=== PATIENT | female | born 1985 | race Caucasian/White ===

== ENCOUNTER 2019-07-13 14:33 | Inpatient (IN) | payer BC, MEDICAID ==
[~2019-07-13] VITALS: Ht 162.6 cm; Wt 76.7 kg
[2019-07-13 14:40] VITALS: BP_SYST 114
[2019-07-13] MEDS ORDERED: NACL 0.9% 1,000 ML IV ONE (15:14)
[2019-07-13] MEDS ORDERED: ONDANSETRON HCL 4 MG/2 ML VIAL IVP ONE (15:15)
[2019-07-13] MEDS ORDERED: MORPHINE 2 MG/ML INJ. SYRINGE IVP ONE (15:15)
[2019-07-13 15:57] LABS: BASOPHILS # (AUTO) 0.1 K/uL (0.0-0.2); EOSINOPHILS # (AUTO) 0.1 K/uL (0.0-0.4); EOSINOPHILS % (AUTO) 1.2 % (0.0-4.0); HEMATOCRIT 42.8 % (36-48); HEMOGLOBIN 14.7 g/dL (12.0-16.0); LYMPHOCYTES # (AUTO) 1.9 K/uL (1.0-5.5); LYMPHOCYTES % (AUTO) 22.8 % (20.5-51.5); MEAN CORPUSCULAR HEMOGLOBIN 30 pg (27-31); MEAN CORPUSCULAR HGB CONC 34 % (32-36); MEAN CORPUSCULAR VOLUME 89 fL (79.0-98.0); MONOCYTES # (AUTO) 0.6 K/uL (0.0-1.0); MONOCYTES % (AUTO) 7.7 % (1.7-9.3); NEUTROPHILS # (AUTO) 5.7 K/uL (1.8-7.7); NEUTROPHILS % (AUTO) 67.3 % (40.0-70.0); PLATELET COUNT (AUTO) 271 K/uL (130-430); RED BLOOD CELL COUNT(AUTO) 4.83 MIL/uL (4.2-6.2); RED CELL DISTRIBUTION WIDTH 12.6 % (9.0-15.0); WHITE BLOOD COUNT (AUTO) 8.4 K/uL (4.8-10.8)
[2019-07-13 16:06] LABS: CALCIUM 9.2 mg/dL (8.4-11.0); CREATININE 1.02 mg/dL (0.55-1.30); POTASSIUM 3.9 mmol/L (3.5-5.1)
[2019-07-13 16:11] LABS: ALBUMIN 4.4 g/dL (3.4-4.8)
[2019-07-13 17:12] LABS: BILIRUBIN,URINE NEGATIVE (NEGATIVE); COLOR,URINE YELLOW (YELLOW); GLUCOSE,URINE NEGATIVE (NEGATIVE); KETONES,URINE NEGATIVE (NEGATIVE); LEUKOCYTE ESTERASE ,URINE TRACE (NEGATIVE); NITRITE, URINE NEGATIVE (NEGATIVE); PH,URINE 6.5 (5.0-8.0); PROTEIN URINE NEGATIVE (NEGATIVE)
[2019-07-13] MEDS ORDERED: MORPHINE 2 MG/ML INJ. SYRINGE ONE (17:18)
[2019-07-13] MEDS ORDERED: ONDANSETRON HCL 4 MG/2 ML VIAL ONE (17:18)
[2019-07-13 17:45] LABS: BLOOD, URINE TRACE (NEGATIVE)
[2019-07-13 17:46] LABS: CLARITY/URINE HAZY (CLEAR); RBC,URINE 0-3 /HPF (0-3)
[2019-07-13 17:47] LABS: BACTERIA,URINE FEW /HPF (None Seen); MUCUS,URINE None Seen /LPF (None Seen)
[2019-07-13 21:58] VITALS: BP_SYST 126
[2019-07-13] MEDS ORDERED: TEMAZEPAM 15 MG CAPSULE PO PRN (22:30)
[2019-07-13] MEDS ORDERED: ACETAMINOPHEN 500 MG TABLET PO PRN (22:45)
[2019-07-13] MEDS ORDERED: MAG-AL HYDROX/SIMETH 30 ML UDC PO PRN (22:45)
[2019-07-13] MEDS ORDERED: cefTRIAXone 1 GM VIAL ONE (23:27)
[2019-07-13] MEDS: PANTOPRAZOLE SODIUM 40 MG/VIAL (PROTONIX) IVP SCH (23:30)
[2019-07-13] MEDS: cefTRIAXone 1 GM in D5W 50 ML IV SCH (23:31)
[2019-07-13] MEDS: LR 1,000 ML IV SCH (23:31)
[2019-07-14] MEDS: HYDROmorphone 1 MG INJ. 1 MG/ML AMPUL IVP PRN (00:28)
[2019-07-14 08:15] VITALS: BP_SYST 94
[2019-07-14] MEDS: PANTOPRAZOLE SODIUM 40 MG/VIAL (PROTONIX) IVP SCH ×2 (08:50→21:32)
[2019-07-14] MEDS ORDERED: SODIUM CHLORIDE 0.65% NASAL SPRAY NS PRN (11:15)
[2019-07-14 11:18] VITALS: BP_SYST 95
[2019-07-14] MEDS: KETOROLAC TROMETHAMINE 15 MG VIAL IVP PRN ×3 (11:26→23:49)
[2019-07-14 11:52] LABS: BASOPHILS % (AUTO) 0.6 % (0.0-2.0); EOSINOPHILS # (AUTO) 0.2 K/uL (0.0-0.4); EOSINOPHILS % (AUTO) 3.9 % (0.0-4.0); HEMATOCRIT 40.4 % (36-48); HEMOGLOBIN 13.6 g/dL (12.0-16.0); LYMPHOCYTES # (AUTO) 1.8 K/uL (1.0-5.5); LYMPHOCYTES % (AUTO) 33.1 % (20.5-51.5); MEAN CORPUSCULAR HEMOGLOBIN 30 pg (27-31); MEAN CORPUSCULAR HGB CONC 34 % (32-36); MEAN CORPUSCULAR VOLUME 89 fL (79.0-98.0); MONOCYTES # (AUTO) 0.5 K/uL (0.0-1.0); MONOCYTES % (AUTO) 9.4 % (1.7-9.3); NEUTROPHILS # (AUTO) 2.9 K/uL (1.8-7.7); PLATELET COUNT (AUTO) 202 K/uL (130-430); RED BLOOD CELL COUNT(AUTO) 4.53 MIL/uL (4.2-6.2)
[2019-07-14 11:55] LABS: WHITE BLOOD COUNT (AUTO) 5.5 K/uL (4.8-10.8)
[2019-07-14 12:00] VITALS: BP_SYST 100
[2019-07-14 12:09] LABS: ALBUMIN 3.5 g/dL (3.4-4.8); CREATININE 0.94 mg/dL (0.55-1.30); FREE T4 (FREE THYROXINE) 1.3 ng/dl (0.8-1.5)
[2019-07-14 12:25] LABS: TOTAL BILIRUBIN 0.9 mg/dL (0.0-1.0)
[2019-07-14] MEDS ORDERED: IOHEXOL 0 ML IV ONE (16:15)
[2019-07-14 17:26] VITALS: BP_SYST 102
[2019-07-14] MEDS ORDERED: LR 1,000 ML IV SCH (17:58)
[2019-07-14] MEDS ORDERED: KETOROLAC TROMETHAMINE 30 MG VIAL ONE (18:00)
[2019-07-14] MEDS ORDERED: fentaNYL CITRATE 250 MCG/5 ML AMP ONE (18:00)
[2019-07-14] MEDS ORDERED: NS IRRIG SOLN 1000 ML IR ONE (18:00)
[2019-07-14] MEDS ORDERED: MEPERIDINE HCL/PF 25 MG/ML DISP.SYRIN IVP PRN (18:00)
[2019-07-14] MEDS ORDERED: ROCURONIUM BROMIDE 10 MG/ML (ZEMURON) ONE (18:00)
[2019-07-14] MEDS ORDERED: PROPOFOL 200MG/ 20ML VIAL (DIPRIVAN) IV ONE (18:00)
[2019-07-14] MEDS ORDERED: ONDANSETRON HCL 4 MG/2 ML VIAL IVP PRN (18:00)
[2019-07-14] MEDS ORDERED: LR 1,000 ML IV.SOLN IV ONE (18:00)
[2019-07-14] MEDS ORDERED: NS 1000 ML IV.SOLN IV ONE (18:00)
[2019-07-14] MEDS ORDERED: CEFAZOLIN 2 GM IVPB PREMIX 50 ML IV ONE (18:00)
[2019-07-14] MEDS ORDERED: MIDAZOLAM HCL 5 MG/ML VIAL (VERSED) IV ONE (18:00)
[2019-07-14] MEDS ORDERED: SEVOFLURANE 15 MIN GAS INH ONE (18:00)
[2019-07-14] MEDS ORDERED: SUCCINYLCHOLINE CHLORIDE 20 MG/ML(QUELICIN) ONE (18:00)
[2019-07-14] MEDS ORDERED: ONDANSETRON HCL 4 MG/2 ML VIAL ONE (18:00)
[2019-07-14] MEDS ORDERED: HYDROmorphone 1 MG INJ. 1 MG/ML AMPUL IVP PRN (18:00)
[2019-07-14] MEDS ORDERED: KETOROLAC TROMETHAMINE 30 MG VIAL IVP PRN (18:00)
[2019-07-14] MEDS ORDERED: MEPERIDINE HCL/PF 25 MG/ML DISP.SYRIN ONE (18:36)
[2019-07-14 20:00] VITALS: BP_SYST 101
[2019-07-14 22:24] VITALS: BP_SYST 98
[2019-07-14] MEDS: cefTRIAXone 1 GM in D5W 50 ML IV SCH (22:47)
[2019-07-15] VITALS: BP_SYST 102
[2019-07-15] MEDS: LR 1,000 ML IV SCH ×2 (03:21→16:51)
[2019-07-15] MEDS: HYDROmorphone 1 MG INJ. 1 MG/ML AMPUL IVP PRN ×3 (03:55→22:26)
[2019-07-15 07:00] VITALS: BP_SYST 100
[2019-07-15 07:57] LABS: BASOPHILS % (AUTO) 0.1 % (0.0-2.0); HEMATOCRIT 39.2 % (36-48); LYMPHOCYTES # (AUTO) 1.2 K/uL (1.0-5.5); LYMPHOCYTES % (AUTO) 9.6 % (20.5-51.5); MEAN CORPUSCULAR HEMOGLOBIN 30 pg (27-31); MEAN CORPUSCULAR HGB CONC 33 % (32-36); MEAN CORPUSCULAR VOLUME 90 fL (79.0-98.0); MONOCYTES # (AUTO) 0.4 K/uL (0.0-1.0); MONOCYTES % (AUTO) 3.1 % (1.7-9.3); NEUTROPHILS # (AUTO) 10.7 K/uL (1.8-7.7); NEUTROPHILS % (AUTO) 87.2 % (40.0-70.0); PLATELET COUNT (AUTO) 213 K/uL (130-430); RED BLOOD CELL COUNT(AUTO) 4.37 MIL/uL (4.2-6.2); RED CELL DISTRIBUTION WIDTH 12.5 % (9.0-15.0); WHITE BLOOD COUNT (AUTO) 12.3 K/uL (4.8-10.8)
[2019-07-15 08:20] LABS: ALBUMIN 3.3 g/dL (3.4-4.8); CALCIUM 7.8 mg/dL (8.4-11.0); CREATININE 0.79 mg/dL (0.55-1.30); POTASSIUM 4.3 mmol/L (3.5-5.1); TOTAL BILIRUBIN 0.6 mg/dL (0.0-1.0)
[2019-07-15] MEDS: PANTOPRAZOLE SODIUM 40 MG/VIAL (PROTONIX) IVP SCH ×2 (09:00→20:59)
[2019-07-15] MEDS: ONDANSETRON HCL 4 MG/2 ML VIAL IVP PRN ×2 (16:14→22:24)
[2019-07-15] MEDS ORDERED: LORazepam 2 MG/ML VIAL IVP ONE (17:30)
[2019-07-15 20:00] VITALS: BP_SYST 108
[2019-07-15] MEDS: cefTRIAXone 1 GM in D5W 50 ML IV SCH (22:23)
[2019-07-16] VITALS: BP_SYST 118
[2019-07-16] MEDS: ONDANSETRON HCL 4 MG/2 ML VIAL IVP PRN ×2 (04:26→11:48)
[2019-07-16] MEDS: HYDROmorphone 1 MG INJ. 1 MG/ML AMPUL IVP PRN (04:27)
[2019-07-16] MEDS: LR 1,000 ML IV SCH (04:29)
[2019-07-16] MEDS: PANTOPRAZOLE SODIUM 40 MG/VIAL (PROTONIX) IVP SCH (09:21)
[2019-07-16 11:21] VITALS: BP_SYST 116
[2019-07-16] MEDS: KETOROLAC TROMETHAMINE 15 MG VIAL IVP PRN (11:48)
[2019-07-16 15:08] VITALS: BP_SYST 126
[2019-07-16] MEDS ORDERED: TRAM50TA2 PO (15:19)
[2019-07-16] MEDS ORDERED: ONDA4TAB5 SL (15:20)
[2019-07-16 15:46] VITALS: BP_SYST 126
== END 2019-07-16 15:50 | disposition home or self-care (01) | DRG 263 ==
LOC: SED 14:33 → SMU 19:03
PROVIDERS: ADMIT Internal Medicine; ATTEND Internal Medicine
PROC: 0FT44ZZ Resection of Gallbladder, Percutaneous Endoscopic Approach (ICD-10-PCS; principal; 2019-07-14 15:30)
DX: K80.62 Calculus of gallbladder and bile duct with acute cholecystitis without obstruction (principal); K76.0 Fatty (change of) liver, not elsewhere classified; K57.30 Diverticulosis of large intestine without perforation or abscess without bleeding; N39.0 Urinary tract infection, site not specified; R74.0 Nonspecific elevation of levels of transaminase and lactic acid dehydrogenase [LDH]; Z79.899 Other long term (current) drug therapy
CPT/HCPCS: 36415; 71045; 74181; 76700-TC; 80053; 81000-TC; 81025; 82150-TC; 82550-TC; 83605; 83690-TC; 83735-TC; 84439; 84703; 85025; 85610-TC; 85730-TC; 87040-TC; 87081; 87086; 88304; 96361; 96374; 96375; 99285; C1727; C9113; J0330; J0690; J0696; J1170; J1885; J2060; J2175; J2250; J2270; J2405; J2704; J3010; J7030; J7050; J7060; J7120; Q9967